=== PATIENT | female | born 1965 | race Caucasian/White ===

== ENCOUNTER 2018-01-23 15:12 | Emergency (ER) | payer OTHER, SELFPAY ==
[2018-01-23] MEDS ORDERED: NA CHLORIDE 0.9% 1,000 ML ONE ×2 (15:43→16:42)
[2018-01-23] MEDS ORDERED: ONDANSETRON 4 MG/2 ML VIAL ONE (15:43)
[2018-01-23 16:18] LABS: Absolute Lymphocytes (CBC) 0.4 K/uL (0.7-4.9); Absolute Monocytes 0.7 K/uL (0.1-1.3); Absolute Neutrophil 9.3 K/uL (1.8-8.0); Basophils % 0.5 % (0-1.3); Eosinophils % 0.1 % (0-4.4); Hematocrit 49.7 % (36.0-45.0); Lymphocytes % 4.1 % (15.3-44.8); MCH 31.8 pg (27.0-35.0); MCV 92.8 fL (80-100); MPV 8.3 fL (7.6-11.3); RBC Red Blood Cell Count 5.35 M/uL (3.86-4.86)
[2018-01-23] MEDS ORDERED: PROMETHAZINE 25 MG/ML VIAL ONE ×2 (16:22→18:11)
[2018-01-23 16:25] LABS: Albumin 5.6 g/dL (3.4-5.0); Bilirubin Direct 0.1 mg/dL (0-0.2); Bilirubin Total 0.4 mg/dL (0.2-1.0); Potassium 4.2 mmol/L (3.5-5.1); Protein, Total 10.2 g/dL (6.4-8.2)
--- NOTE | 2018-01-23 16:36 | EKG ---
Test Date: 2018-01-23 Test Time: 15:52:29 Hr Leader: SHIRLENE-Charissa MEASUREMENT RESULTS: Intervals: Rate: 106 [place]: 142 QRSD: 84 QT: 334 QTc: 443 [place]: P: 36 [place]: 142 QRS: 37 T: 61 INTERPRETIVE STATEMENTS: Sinus tachycardia Possible Left atrial enlargement Borderline ECG Compared to ECG 02/25/2014 07:30:20 Sinus rhythm no longer present Electronically Signed On 01-23-18 16:35:49 CDT by Giorgio Blanton
--- NOTE | 2018-01-23 17:01 | RAD REPORT ---
EXAM DESCRIPTION: CT - Abdomen Pelvis Wo Contrast - 01/23/2018 4:45 pm CLINICAL HISTORY: Abdominal pain, nausea and vomiting, diarrhea COMPARISON: CT abdomen and pelvis February 2014 TECHNIQUE: Axial [address] imaging of the abdomen and pelvis was performed without IV contrast. No IV contrast was given because of allergy, abnormal renal function, patient refusal or physician re quest. Oral contrast was given. All CT scans are performed using dose optimization technique as appropriate and may include automated exposure control or mA/KV adjustment according to patient size. FINDINGS: No suspicious findings in the lung bases. The liver, spleen and pancreas show no suspicious findings on non-contrast imaging. Gallbladder and b iliary tree are also without suspicious finding. No hydronephrosis or suspicious renal mass. Left kidney is slightly smaller and more lobulated contou r. This appearance is similar to prior imaging. Patient has nonobstructing calyx or parenchymal calcu li. No significant adrenal finding. Isodense renal masses and pyelonephritis cannot be excluded in th e absence of IV contrast. The urinary bladder is without significant finding. Uterus and ovaries show no suspicious findings. Tubal ligation clips are present. No dilated bowel loops or bowel wall thickening. No free air, free fluid or inflammatory stranding. N o mass or bulky lymphadenopathy. There are numerous small mesenteric and periaortic lymph nodes. No b ulky lymphadenopathy. A small fat only periumbilical hernia is seen. Disc and bone degenerative changes are present. No pathologic bone process. IMPRESSION: No obstruction, free air or surgically emergent finding. No acute GI process seen. The patient does have nonspecific mesenteric and periaortic lymph nodes. No hydronephrosis or obstructing calculus. Patient does have small bilateral nonobstructing calyx and / or parenchymal calculi. Isodense masses and pyelonephritis are not excluded. Full assessment is limited is the absence of IV contrast.
[2018-01-23] MEDS ORDERED: DIPHENOX/ATROP SULF 1 TAB PO ONE (17:14)
[2018-01-23] MEDS ORDERED: NA CHLORIDE 0.9% 500 ML ONE (18:12)
--- NOTE | 2018-01-23 18:12 | ER ---
Nurse's Notes [facility] Name: Dorina Rice Age: 52 yrs Sex: Female : 1965 Arrival Date: 01/23/2018 Time: 15:13 Bed 5 Private MD: None, None Diagnosis: Vomiting;Diarrhea, unspecified;Dehydration;Viral Gastroenteritis Presentation: 01/23 15:22 Presenting complaint: Patient states: N/V/D since 0200 this am. Transition of care: aj patient was not received from another setting of care. Onset of symptoms was January 23, 2018. Risk Assessment: Do you want to hurt yourself or someone else? Patient reports no desire to harm self or others. Initial Sepsis Screen: Does the patient meet any 2 criteria? No. Patient's initial sepsis screen is negative. Does the patient have a suspected source of infection? No. Patient's initial sepsis screen is negative. Care prior to arrival: None. 15:22 Method Of Arrival: Wheelchair 15:22 Acuity: DOMINIC 3 aj Triage Assessment: 15:24 General: Appears in no apparent distress. comfortable, Behavior is calm, cooperative, aj appropriate for age. Pain: Denies pain. Neuro: Level of Consciousness is awake, alert, obeys commands, Oriented to person, place, time, situation, Appropriate for age. Respiratory: Airway is patent Respiratory effort is even, unlabored, Respiratory pattern is regular, symmetrical. GI: Reports diarrhea, nausea, vomiting. Derm: Skin is intact, is healthy with good turgor, Skin is pink, warm \T\ dry. normal. 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 - Social history:: Smoking status: Patient/guardian denies using tobacco. - Ebola Screening: : Patient negative for fever greater than or equal to 101.5 degrees Fahrenheit, and additional compatible Ebola Virus Disease symptoms Patient denies exposure to infectious person Patient denies travel to an Ebola-affected area in the 21 days before illness onset No symptoms or risks identified at this time. - Family history:: not pertinent. - Hospitalizations: : No recent hospitalization is reported. Screenin:35 Abuse screen: Denies threats or abuse. Nutritional screening: No deficits noted. jb4 Tuberculosis screening: No symptoms or risk factors identified. Fall Risk IV access (20 points). Total Perez Fall Scale indicates No Risk (0-24 pts). Assessment: 15:35 General: Appears in no apparent distress. uncomfortable, Behavior is calm, cooperative, jb4 appropriate for age. Pain: Complains of pain in right low back, right hip and left hip Pain does not radiate. Pain currently is 7 out of 10 on a pain scale. at worst was 10 out of 10 on a pain scale. Quality of pain is described as crampy. Neuro: Level of Consciousness is awake, alert, obeys commands, Oriented to person, place, time, situation. Cardiovascular: Denies chest pain, shortness of breath, Heart tones S1 S2 present Patient's skin is warm and dry. Respiratory: Airway is patent Respiratory effort is even, unlabored, Respiratory pattern is symmetrical, tachypnea Breath sounds are clear bilaterally. GI: Abdomen is flat, Bowel sounds present X 4 quads. Abdomen is tender to palpation in epigastric area Reports cramping, diarrhea, nausea, vomiting, Patient currently denies bloody stool. : No signs and/or symptoms were reported regarding the genitourinary system. EENT: No signs and/or symptoms were reported regarding the EENT system. Derm: Skin is intact, Skin is pink, warm \T\ dry. Musculoskeletal: No signs and/or symptoms reported regarding the musculoskeletal system. 16:20 Reassessment: Patient and/or family updated on plan of care and expected duration. Pain jb4 level reassessed. Patient is alert, oriented x 3, equal unlabored respirations, skin warm/dry/pink. Pt reports that the Zofran did not help much, still complaining of nausea. Physician notified. See MAR for orders. 16:43 Reassessment: Pt wheeled to CT. reports decrease in nausea. jb4 17:00 Reassessment: Patient and/or family updated on plan of care and expected duration. Pain jb4 level reassessed. Patient is alert, oriented x 3, equal unlabored respirations, skin warm/dry/pink. Pt is back from CT. Resting in bed with family at the bedside. 18:18 Reassessment: Patient appears in no apparent distress at this time. Patient and/or jb4 family updated on plan of care and expected duration. Pain level reassessed. Patient is alert, oriented x 3, equal unlabored respirations, skin warm/dry/pink. 18:32 Reassessment: Pt reports decrease in nausea after Phenergan administration. jb4 Vital Signs: 15:24 Pulse 134; Resp 23; Temp 97.5; Pulse Ox 97% on R/A; Weight 81.65 kg; Height 5 ft. 2 in. aj (157.48 cm); 16:07 BP 103 / 69; Pulse 103; Resp 30; Pulse Ox 98% on R/A; Pain 10/10; jb4 17:04 BP 111 / 67; Pulse 108; Resp 27; Pulse Ox 96% on R/A; Pain 5/10; jb4 18:09 Pulse 111; Resp 18; Pulse Ox 95% on R/A; mg2 18:09 BP 136 / 75; jb4 15:24 Body Mass Index 32.92 (81.65 kg, 157.48 cm) aj 15:24 Patient moving during blood pressure measurement. Attempted twice when patient insisted aj on using restroom. Nurse informed of inability to measure BP in triage ED Course: 15:13 Patient arrived in ED. mr 15:13 None, None is Private Physician. mr 15:23 Triage completed. aj 15:24 Arm band placed on left wrist. Patient placed in an exam room. aj 15:29 Wyatt Carbajal MD is Attending Physician. rn 15:35 Patient has correct armband on for positive identification. Bed in low position. Call 4 light in reach. Side rails up X 1. emergency spill response technician on. Pulse ox on. NIBP on. 15:37 Radiology exam delayed due to lab results not completed at this time. (BUN/Creatinine). vr 15:40 Inserted saline lock: 20 gauge in right antecubital area, using aseptic technique. jb4 Blood collected. 15:40 Initial lab(s) drawn, by fl, sent to lab. jb4 15:52 Klaus Navarro, RN is Primary Nurse. 4 15:56 EKG done, by senior controls technician. reviewed by Wyatt Carbajal MD. 3 15:58 Radiology exam delayed due to lab results not completed at this time. (BUN/Creatinine). vr 16:46 Abdomen In Process Unspecified. EDMS 18:52 No provider procedures requiring assistance completed. IV discontinued, intact, jb4 bleeding controlled. Administered Medications: 15:42 Drug: Zofran 4 mg Route: IVP; Site: right antecubital; mg2 16:08 Follow up: Response: No adverse reaction jb4 15:43 Drug: NS 0.9% 1000 ml Route: IV; Rate: 1000 ml; Site: right antecubital; mg2 16:40 Follow up: Response: No adverse reaction; IV Status: Completed infusion jb4 16:25 Drug: Phenergan 12.5 mg Route: IVP; Site: right antecubital; jb4 16:41 Follow up: Response: No adverse reaction jb4 16:59 Drug: NS 0.9% 1000 ml Route: IV; Rate: 1000 ml; Site: right antecubital; jb4 17:50 Follow up: Response: No adverse reaction; IV Status: Completed infusion jb4 17:15 Drug: LoMOTIL 2 tabs Route: PO; la1 17:50 Follow up: Response: No adverse reaction jb4 18:06 Not Given (Duplicate Order): Phenergan 12.5 mg IVP once la1 18:06 CANCELLED (Duplicate Order): NS 0.9% 500 ml IV at bolus once la1 18:18 Drug: NS 0.9% 500 ml Route: IV; Rate: bolus; Site: right antecubital; jb4 18:45 Follow up: Response: No adverse reaction; IV Status: Completed infusion jb4 18:18 Drug: Phenergan 12.5 mg Route: IVP; Site: right antecubital; jb4 18:32 Follow up: Response: No adverse reaction jb4 Outcome: 18:11 Discharge ordered by . rn 18:52 Discharged to home ambulatory. jb4 18:52 Condition: stable 18:52 Discharge instructions given to patient, family, Instructed on discharge instructions, follow up and referral plans. medication usage, Demonstrated understanding of instructions, follow-up care, medications, Prescriptions given X 1. 18:53 Patient left the ED. jb4 Signatures: Dispatcher [employer] EDMS Summer Sanchez RN RN aj Rivera, Maria mr Nieto, Roman, MD MD rn Davis, Victoria vr Attema, Lee, RN RN la1 Klaus Navarro RN RN jb4 Edward Paige RN RN mg2 Sherry Wallace3 Corrections: (The following items were deleted from the chart) 15:27 15:24 Pulse 134bpm; Resp 23bpm; Pulse Ox 97% RA; Temp 97.5F; 81.65 kg; Height 5 ft. 2 aj in.; BMI: 32.9; aj 18:52 18:30 Response: No adverse reaction; IV Status: Completed infusion rafa jbSalbador
--- NOTE | 2018-01-23 18:12 | EDPHYS ---
Physician Documentation [facility] Name: Dorina Rice Age: 52 yrs Sex: Female : 1965 Arrival Date: 01/23/2018 Time: 15:13 Bed 5 Private MD: None, None ED Physician Wyatt Carbajal HPI: 01/23 16:10 This 52 yrs old Female presents to ER via Wheelchair with complaints of rn Vomiting/Diarrhea. 16:10 The patient presents to the emergency department with nausea, vomiting, diarrhea. rn Onset: The symptoms/episode began/occurred this morning. Possible causes: unknown. Severity of symptoms: At their worst the symptoms were moderate in the emergency department the symptoms are unchanged. 16:12 The patient has not experienced similar symptoms in the past. Reports rn nausea/vomiting/diarrhea since this AM, multiple kids in household with similar symptoms over last 2 weeks, + mild abd cramping, unable to tolerate PO.. 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 - Social history:: Smoking status: Patient/guardian denies using tobacco. - Ebola Screening: : Patient negative for fever greater than or equal to 101.5 degrees Fahrenheit, and additional compatible Ebola Virus Disease symptoms Patient denies exposure to infectious person Patient denies travel to an Ebola-affected area in the 21 days before illness onset No symptoms or risks identified at this time. - Family history:: not pertinent. - Hospitalizations: : No recent hospitalization is reported. ROS: 16:12 Constitutional: Negative for fever, chills, and weight loss, Eyes: Negative for injury, rn pain, redness, and discharge, Neck: Negative for injury, pain, and swelling, Cardiovascular: Negative for chest pain, palpitations, and edema, Respiratory: Negative for shortness of breath, cough, wheezing, and pleuritic chest pain, Abdomen/GI: Negative for constipation MS/Extremity: Negative for injury and deformity, Skin: Negative for injury, rash, and discoloration, Neuro: Negative for headache, numbness, tingling, and seizure. Exam: 16:12 Constitutional: This is a well developed, well nourished patient who is awake, alert, rn appears uncomfortable Head/Face: Normocephalic, atraumatic. Eyes: Pupils equal round and reactive to light, extra-ocular motions intact. Lids and lashes normal. Conjunctiva and sclera are non-icteric and not injected. Cornea within normal limits. Periorbital areas with no swelling, redness, or edema. ENT: dry MM Neck: Trachea midline, no thyromegaly or masses palpated, and no cervical lymphadenopathy. Supple, full range of motion without nuchal rigidity, or vertebral point tenderness. No Meningismus. Cardiovascular: tachycardic, regular, no murmur Respiratory: tachypnea, no retractions, no wheezing Abdomen/GI: Soft, non-tender. No distension or tympany. No guarding or rebound. No evidence of tenderness throughout. MS/ Extremity: Pulses equal, no cyanosis. Neurovascular intact. Full, normal range of motion. Equal circumference. Neuro: Awake and alert, GCS 15, oriented to person, place, time, and situation. Cranial nerves II-XII grossly intact. Motor strength 5/5 in all extremities. Sensory grossly intact. Vital Signs: 15:24 Pulse 134; Resp 23; Temp 97.5; Pulse Ox 97% on R/A; Weight 81.65 kg; Height 5 ft. 2 in. aj (157.48 cm); 16:07 BP 103 / 69; Pulse 103; Resp 30; Pulse Ox 98% on R/A; Pain 10/10; jb4 17:04 BP 111 / 67; Pulse 108; Resp 27; Pulse Ox 96% on R/A; Pain 5/10; jb4 18:09 Pulse 111; Resp 18; Pulse Ox 95% on R/A; mg2 18:09 BP 136 / 75; jb4 15:24 Body Mass Index 32.92 (81.65 kg, 157.48 cm) aj 15:24 Patient moving during blood pressure measurement. Attempted twice when patient insisted aj on using restroom. Nurse informed of inability to measure BP in triage MDM: 15:29 Patient medically screened. rn 18:06 Differential diagnosis: Nonspecific abd pain, gastritis, pancreatitis, appendicitis, rn diverticulitis, viral gastroenteritis, gastroenteritis. Data reviewed: vital signs, nurses notes, lab test result(s), radiologic studies, CT scan, and as a result, I will discharge patient. Counseling: I had a detailed discussion with the patient and/or guardian regarding: the historical points, exam findings, and any diagnostic results supporting the discharge/admit diagnosis, lab results, radiology results, the need for outpatient follow up, to return to the emergency department if symptoms worsen or persist or if there are any questions or concerns that arise at home. Response to treatment: the patient's symptoms have markedly improved after treatment, tolerated PO challenge, and as a result, I will discharge patient. Special discussion: I discussed with the patient/guardian in detail that at this point there is no indication for admission to the hospital. It is understood, however, that if the symptoms persist or worsen the patient needs to return immediately for re-evaluation. ED course: Pt improved, still mild tachycardia, offered observation overnight for IV fluids and nausea medication, patient states feels much better, tolerated PO, would like to go home and sleep it off, no more diarrhea, no acute findings on CT abdomen, will dc home with zofran prn and return precautions. Pt states without insurance and would only like to be admitted if absolutely has to, told her admission would be for fluids and anti-emetics, she chooses to go home. . 01/23 15:35 Order name: Basic Metabolic Panel; Complete Time: 16:33 rn 01/23 15:35 Order name: CBC with Diff; Complete Time: 16:33 rn 01/23 15:35 Order name: Hepatic Function; Complete Time: 16:33 rn 01/23 15:35 Order name: Lipase; Complete Time: 16:33 rn 01/23 16:37 Order name: Abdomen ; Complete Time: 17:02 EDMS 01/23 15:35 Order name: IV Saline Lock; Complete Time: 15:43 rn 01/23 15:35 Order name: Labs collected and sent; Complete Time: 15:43 rn 01/23 15:35 Order name: EKG; Complete Time: 15:36 rn 01/23 15:35 Order name: EKG - Nurse/Tech; Complete Time: 16:12 rn Administered Medications: 15:42 Drug: Zofran 4 mg Route: IVP; Site: right antecubital; mg2 16:08 Follow up: Response: No adverse reaction jb4 15:43 Drug: NS 0.9% 1000 ml Route: IV; Rate: 1000 ml; Site: right antecubital; mg2 16:40 Follow up: Response: No adverse reaction; IV Status: Completed infusion jb4 16:25 Drug: Phenergan 12.5 mg Route: IVP; Site: right antecubital; jb4 16:41 Follow up: Response: No adverse reaction jb4 16:59 Drug: NS 0.9% 1000 ml Route: IV; Rate: 1000 ml; Site: right antecubital; jb4 17:50 Follow up: Response: No adverse reaction; IV Status: Completed infusion jb4 17:15 Drug: LoMOTIL 2 tabs Route: PO; la1 17:50 Follow up: Response: No adverse reaction jb4 18:06 Not Given (Duplicate Order): Phenergan 12.5 mg IVP once la1 18:06 CANCELLED (Duplicate Order): NS 0.9% 500 ml IV at bolus once la1 18:18 Drug: NS 0.9% 500 ml Route: IV; Rate: bolus; Site: right antecubital; jb4 18:45 Follow up: Response: No adverse reaction; IV Status: Completed infusion jb4 18:18 Drug: Phenergan 12.5 mg Route: IVP; Site: right antecubital; jb4 18:32 Follow up: Response: No adverse reaction jb4 Disposition: 01/23/18 18:11 Discharged to Home. Impression: Vomiting, Diarrhea, unspecified, Dehydration, Viral Gastroenteritis. - Condition is Stable. - Discharge Instructions: Dehydration, Adult, Diarrhea, Adult, Nausea and Vomiting, Adult, Viral Gastroenteritis, Adult. - Prescriptions for Zofran ODT 4 mg Oral tablet,disintegrating - place 1 tablet by TRANSLINGUAL route every 8-10 hours As needed; 20 tablet. - Medication Reconciliation Form, Thank You Letter, Antibiotic Education, Prescription Opioid Use form. - Follow up: Private Physician; When: As needed; Reason: Recheck today's complaints, Re-evaluation by your physician. - Problem is new. - Symptoms have improved. Signatures: Dispatcher [employer] Summer Chen RN RN aj Nieto, Roman, MD MD rn Attema, Lee, RN RN la1 Klaus Navarro RN RN jb4 Edward Paige, RN RN mg2 Corrections: (The following items were deleted from the chart) 16:37 15:36 Abdomen Pelvis W Con+CT.[id number].BRZ ordered. EDMS EDMS 18:06 18:06 NS 0.9% 500 ml IV at bolus once ordered. laChaim laChaim 18:53 18:11 01/23/2018 18:11 Discharged to Home. Impression: Vomiting; Diarrhea, unspecified; jb4 Dehydration; Viral Gastroenteritis. Condition is Stable. Forms are Medication Reconciliation Form, Thank You Letter, Antibiotic Education, Prescription Opioid Use. Follow up: Private Physician; When: As needed; Reason: Recheck today's complaints, Re-evaluation by your physician. Problem is new. Symptoms have improved. rn
[2018-01-23 18:58] VITALS: TEMP 97.5
[2018-01-23 19:02] VITALS: BP 136/75; O2SAT 95
== END 2018-01-23 18:53 | disposition home or self-care (01) ==
LOC: ER 15:12
DX: A08.4 Viral intestinal infection, unspecified (principal); E86.0 Dehydration; R11.2 Nausea with vomiting, unspecified; R19.7 Diarrhea, unspecified; Z88.3 Allergy status to other anti-infective agents; Z88.0 Allergy status to penicillin; I10 Essential (primary) hypertension
CPT/HCPCS: 36415; 74176; 80048; 80076; 83690; 85025; 93005; 96361; 96374; 96375; 99285; J2405; J2550; J7030

== ENCOUNTER 2021-04-29 07:32 | Emergency (ER) | payer SELFPAY ==
[2021-04-29] MEDS ORDERED: ONDANSETRON 4 MG/2 ML VIAL ONE (07:50)
[2021-04-29] MEDS ORDERED: NA CHLORIDE 0.9% 1,000 ML ONE (07:50)
[2021-04-29] MEDS ORDERED: MORPHINE 4 MG/ML SYR ONE (07:50)
[2021-04-29 08:01] LABS: Urine Blood Trace-intact (Negative); Urine Glucose Negative (Negative); Urine Protein 1+ (Negative); Urine pH 7.5 (5.0-7.0)
[2021-04-29 08:26] LABS: Absolute Lymphocytes (CBC) 1.8 K/uL (0.7-4.9); Basophils % 0.7 % (0-1.3); Hematocrit 42.6 % (36.0-45.0); Lymphocytes % 15.1 % (15.3-44.8); MPV 7.4 fL (7.6-11.3); RBC Red Blood Cell Count 4.76 M/uL (3.86-4.86)
--- NOTE | 2021-04-29 08:42 | RAD REPORT ---
EXAM DESCRIPTION: CT - Abdomen Pelvis W Contrast - 04/29/2021 8:23 am CLINICAL HISTORY: ABD PAIN COMPARISON: CT ABD PELVIS W CONTRAST dated 02/24/2014 TECHNIQUE: Biphasic, helical CT imaging of the abdomen and pelvis was performed following 100 ml non -ionic IV contrast. No oral contrast was administered. All CT scans are performed using dose optimization technique as appropriate and may include automated exposure control or mA/KV adjustment according to patient size. FINDINGS: No suspicious findings in the lung bases. No cardiomegaly or pericardial effusion. Bilater al breast implants in place. The liver, spleen, and pancreas show no suspicious findings. Gallbladder and biliary tree are also wi thout suspicious finding. Symmetric renal function is seen with no hydronephrosis or suspicious renal mass. No pyelonephritis o r acute parenchymal process. Nonobstructing 3-6 mm sized calyx calculi are present. Lobulated left re nal contour again noted. 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 No adrenal abnormal ities. Contracted urinary bladder shows no gross abnormality. Uterus and ovaries without suspicious f indings. Left fundal fibroid matches the 2014 study. No stomach or small bowel abnormality. No appendicitis findings. Mild circumferential wall thickening present with wall edema and stranding in the adjacent fat involving the descending and sigmoid porti ons of the colon. In the descending colon there are several exophytic opacified diverticula also show ing similar infectious/ inflammatory wall changes. No abnormal extraluminal free air, abscess or surg ically emergent finding. No pneumatosis. Rectum and right-side colon spared any acute disease. No mass or bulky lymphadenopathy. A small 15 millimeter fat only umbilical hernia present. No acute disc or bone finding. Patient has advanced for age degenerative change involving the L4-5 an d L5-S1 facet joints. There is slight anterior subluxation of L5 with degenerative gas in the L5-S1 d isc space. IMPRESSION: Sigmoid and descending portions of the colon show wall thickening and edema consistent w ith nonspecific colitis. Patient does have a few diverticula that are involved by the infectious/inflammatory process. These a re few in number and the findings favor colitis over diverticulitis.
[2021-04-29 08:43] LABS: ALT/SGPT 32 U/L (12-78); AST/SGOT 17 U/L (15-37); Albumin 4.2 g/dL (3.4-5.0); Alkaline Phosphatase 116 U/L (45-117); BUN Blood Urea Nitrogen 13 mg/dL (7-18); Bicarbonate 28 mmol/L (21-32); Bilirubin Direct 0.1 mg/dL (0-0.2); Bilirubin Total 0.4 mg/dL (0.2-1.0); Glucose Level 110 mg/dL (74-106); Lipase 81 U/L (73-393); Potassium 4.1 mmol/L (3.5-5.1); Protein, Total 8.3 g/dL (6.4-8.2); Sodium Level 139 mmol/L (136-145)
--- NOTE | 2021-04-29 09:01 | ER ---
Nurse's Notes [facility] Name: Dorina Rice Age: 55 yrs Sex: Female : 1965 Arrival Date: 04/29/2021 Time: 07:33 Bed 14 Private MD: Holli Rapp Diagnosis: Colitis Presentation: 04/29 07:43 Chief complaint: Patient states: Pt. endorses abdominal pain that started last night jt3 that radiates from front to back. Pt. states she had nausea and vomiting and bright red bloody diarrhea. Alert and oriented x4 on arrival. Denies dizziness at this time. Past medical hx of HTN. Coronavirus screen: Vaccine status: Patient reports receiving the 2nd dose of the covid vaccine. Ebola Screen: Patient negative for fever greater than or equal to 101.5 degrees Fahrenheit, and additional compatible Ebola Virus Disease symptoms Patient denies exposure to infectious person. Patient denies travel to an Ebola-affected area in the 21 days before illness onset. Initial Sepsis Screen: Does the patient meet any 2 criteria? No. Patient's initial sepsis screen is negative. Does the patient have a suspected source of infection? No. Patient's initial sepsis screen is negative. Risk Assessment: Do you want to hurt yourself or someone else? Patient reports no desire to harm self or others. Onset of symptoms was April 28, 2021. 07:43 Method Of Arrival: Ambulatory jt3 07:43 Acuity: DOMINIC 3 jt3 Triage Assessment: 07:45 General: Appears uncomfortable, Behavior is calm, cooperative. Pain: Complains of pain jt3 in abdomen Pain radiates to back Pain began 1 day ago. GI: Reports lower abdominal pain, diarrhea, bloody stool, nausea, vomiting. Historical: - Allergies: 07:45 Bactrim; jt3 07:45 PENICILLINS; jt3 07:45 Sulfa (Sulfonamide Antibiotics); jt3 - PMHx: 07:45 Hypertension; jt3 - Immunization history:: Adult Immunizations up to date. - Social history:: Smoking status: unknown. Screenin:45 Abuse screen: Denies threats or abuse. Nutritional screening: No deficits noted. sl2 Tuberculosis screening: No symptoms or risk factors identified. Tuberculosis screening: Never had TB. Possible symptoms: None Risk factors: None. Fall Risk None identified. No fall in past 12 months (0 pts). No secondary diagnosis (0 pts). No IV (0 pts). Ambulatory Aid- None/Bed Rest/Nurse Assist (0 pts). Gait- Normal/Bed Rest/Wheelchair (0 pts). Assessment: 07:45 Reassessment: Patient encouraged to provide urine specimen - ambulated to restroom with sl2 steady gait noted. Pain: Complains of pain in abdomen Pain does not radiate. Pain currently is 7 out of 10 on a pain scale. at worst was 10 out of 10 on a pain scale. level that patient reports is acceptable is 2 out of 10 on a pain scale. Quality of pain is described as aching, crampy, squeezing, Pain began suddenly, 10 -12 hours ago - last pm Is intermittent, Alleviated by nothing. Aggravated by none Noted to be grimacing. Neuro: No deficits noted. Level of Consciousness is awake, alert, obeys commands, Oriented to person, place, time, situation, Appropriate for age Rn Mds Coordinator are equal bilaterally Moves all extremities. Full function Gait is steady, Speech is normal, Facial symmetry appears normal. Cardiovascular: No deficits noted. Capillary refill Rhythm is regular. GI: Abdomen is round obese, Bowel sounds present X 4 quads. Abd is soft and non tender X 4 quads. Reports lower abdominal pain, upper abdominal pain, rectal bleeding, Patient currently denies nausea, vomiting. : No deficits noted. No signs and/or symptoms were reported regarding the genitourinary system. EENT: No deficits noted. No signs and/or symptoms were reported regarding the EENT system. Derm: No deficits noted. No signs and/or symptoms reported regarding the dermatologic system. Musculoskeletal: No deficits noted. No signs and/or symptoms reported regarding the musculoskeletal system. 08:31 Reassessment: CAT scan completed - awaiting results. patient verbalized decreased pain sl2 now 1 of 10, denies nausea. Will continue to re-assess and monitor. 08:59 Reassessment: Ozzie [employer] present at bedside for patient re-assessment, update on sl2 diagnostic findings and disposition. 09:34 Reassessment: Patient currently being prepared for discharge, however c/o severe sl2 itching to bilateral ears, neck and chest, also c/o itching to throat with hoarseness noted, patient frequently make noises to clear her throat - allergic response noted - Cipro 500 mg PO and Flagyl 500 PO was administered at 09:04 this am. EDP notified and orders received - patient mediated with Benadryl 50 mg IVP, Solu-Medrol 125 mg IVP and Pepcid 20 mg PO, 1:1 monitoring in progress. Will notify EDP of patient status. 10:01 Reassessment: Patient denies itching to bilateral ears, neck and chest at this time, sl2 states still feel scratchy sensation to throat, however itching to throat has subsided. Vital signs stable, improved patient status noted. 10:13 Reassessment: Patient states she feels much better - denies itching and states scratchy sl2 sensation to her throat has improved as well. Will continue to monitor. 10:51 Reassessment: Pt. is feeling better, but drowsy from the medication. Pt. feels she is jt3 comfortable to go home at this time. Denies itching. Alert and oriented x4. IV d/c'd upon discharge. Airway patent and respirations equal and unlabored. Vital Signs: 07:43 BP 157 / 103; Pulse 97; Resp 20; Temp 98.3; Pulse Ox 97% on R/A; Weight 77.11 kg; jt3 Height 5 ft. 1 in. (154.94 cm); 07:45 BP 152 / 98; Pulse 95; Resp 18; Temp 98.3(O); Pulse Ox 98% on R/A; sl2 08:08 BP 119 / 81; Pulse 79; Resp 18; Pulse Ox 100% on R/A; sl2 08:35 BP 150 / 76; Pulse 83; Resp 18; Pulse Ox 97% on R/A; sl2 09:00 BP 154 / 85; Pulse 83; Resp 18; Temp 98.2(O); Pulse Ox 99% on R/A; sl2 09:30 BP 148 / 82; Pulse 90; Resp 16; Pulse Ox 97% on R/A; sl2 10:00 BP 134 / 74; Pulse 77; Resp 18; Temp 98.2; Pulse Ox 98% on R/A; sl2 10:47 BP 129 / 70; Pulse 77; Resp 17; Pulse Ox 97% on R/A; jt3 07:43 Body Mass Index 32.12 (77.11 kg, 154.94 cm) jt3 ED Course: 07:33 Patient arrived in ED. am2 07:33 Holli Rapp MD is Private Physician. am2 07:36 Reba Horne FNP-C is [facility]. kb 07:37 William Martinez MD is Attending Physician. kb 07:45 Triage completed. jt3 07:45 Kirsten Roman, RN is Primary Nurse. sl2 07:45 Arm band placed on right wrist. jt3 07:45 Patient has correct armband on for positive identification. Placed in gown. Bed in low sl2 position. Call light in reach. Adult w/ patient. 08:[address] via stretcher. sl2 08:15 Initial lab(s) drawn, by me, sent to lab. sl2 08:23 CT Abd/Pelvis - IV Contrast Only In Process Unspecified. EDMS 08:25 No provider procedures requiring assistance completed. sl2 08:31 Patient moved back from CT. sl2 09:16 IV discontinued, intact, bleeding controlled, No redness/swelling at site. Pressure sl2 dressing applied. 09:29 Inserted saline lock: 20 gauge in right antecubital area, using aseptic technique. sl2 10:48 IV discontinued, intact, bleeding controlled, No redness/swelling at site. Pressure jt3 dressing applied, Right arm IV D/C'd. Administered Medications: 08:04 Drug: Zofran (Ondansetron) 4 mg Route: IVP; Site: left forearm; sl2 08:36 Follow up: Response: No adverse reaction; Marked relief of symptoms; Nausea is decreasedsl2 08:04 Drug: NS 0.9% 1000 ml Route: IV; Rate: 1000 ml; Site: left forearm; sl2 08:36 Follow up: Response: No adverse reaction sl2 09:10 Follow up: IV Status: Completed infusion; IV Intake: 1000ml sl2 08:06 Drug: morphine 4 mg Route: IVP; Site: left forearm; sl2 08:36 Follow up: Response: No adverse reaction; Marked relief of symptoms; Pain is decreased sl2 09:04 Drug: Cipro (ciprofloxacin) 500 mg Route: PO; sl2 09:13 Follow up: Response: No adverse reaction sl2 09:20 Follow up: Response: Adverse reaction, Physician notified sl2 09:04 Drug: Flagyl (metroNIDAZOLE) 500 mg Route: PO; sl2 09:13 Follow up: Response: No adverse reaction sl2 09:28 Drug: Pepcid (famotidine) 40 mg Route: PO; sl2 09:30 Drug: Benadryl (diphenhydrAMINE) 50 mg {Note: medication administered to Right sl2 antecubetal space # 20 guage IV.} Route: IM; Site: Other; 09:32 Drug: SOLU-Medrol (methylPrednisoLONE) 125 mg Route: IVP; Site: right antecubital; sl2 09:54 Not Given ( Medication already given via IV route to right A/C # 20 guage ): Benadryl sl2 (diphenhydrAMINE) 25 mg IVP once Intake: 09:10 IV: 1000ml; Total: 1000ml. sl2 Outcome: 09:01 Discharge ordered by . jovany 09:15 Discharged to home ambulatory, with family. sl2 09:15 Condition: stable 09:15 Discharge instructions given to patient, family, Instructed on discharge instructions, follow up and referral plans. no drinking with medication, medication usage, Demonstrated understanding of instructions, follow-up care, medications, Prescriptions given X 4. 10:52 Patient left the ED. jt3 Signatures: Dispatcher [employer] EDMS Reba Horne, QUINCY FRANK-Summer Collins am2 Kirsten Roman RN RN sl2 Josias Collins RN RN jt3 Corrections: (The following items were deleted from the chart) 10:12 09:34 Reassessment: Patient currently being prepared for discharge, however c/o severe sl2 itching to bilateral ears, neck and chest - allergic response noted - cipro 500mg PO and flagyl 500PO was administered at 09:04 today. EDP notified and orders received - patient mediated with Benadryl 50mg IVP, Solumedrol 125mg IVP amd pepcid 20mg PO, 1:1 monitoring in progress. Will notify EDP of patient status sl2
--- NOTE | 2021-04-29 09:01 | EDPHYS ---
Physician Documentation [facility] Name: Dorina Rice Age: 55 yrs Sex: Female : 1965 Arrival Date: 04/29/2021 Time: 07:33 Bed 14 Private MD: Holli Rapp ED Physician William Martinez HPI: 04/29 07:51 This 55 yrs old Female presents to ER via Ambulatory with complaints of kb Vomiting/Diarrhea, Abdominal Cramping, Rectal Bleeding. 07:51 The patient has not experienced similar symptoms in the past. The patient has not kb recently seen a physician. 07:51 The patient presents to the emergency department with rectal bleeding, bright red blood kb with bowel movement, on toilet paper, in toilet bowl. Onset: The symptoms/episode began/occurred last night. Abdominal pain: described as intermittent, located in the abdomen diffusely, that radiates to the back. Modifying factors: The symptoms are alleviated by nothing, the symptoms are aggravated by nothing. Associated signs and symptoms: Pertinent positives: vomiting, Pertinent negatives: anorexia, chest pain, constipation, diarrhea, dizziness at rest, dizziness when standing, fever, shortness of breath, syncope, near-syncope. Severity of symptoms: At their worst the symptoms were moderate in the emergency department the symptoms are unchanged. Historical: - Allergies: 07:45 Bactrim; jt3 07:45 PENICILLINS; jt3 07:45 Sulfa (Sulfonamide Antibiotics); jt3 - PMHx: 07:45 Hypertension; jt3 - Immunization history:: Adult Immunizations up to date. - Social history:: Smoking status: unknown. ROS: 07:50 Constitutional: Negative for fever, chills, and weight loss. kb 07:50 Abdomen/GI: Positive for abdominal pain, nausea and vomiting, rectal bleeding. 07:50 All other systems are negative. Exam: 07:50 Constitutional: This is a well developed, well nourished patient who is awake, alert, kb and in no acute distress. Head/Face: Normocephalic, atraumatic. ENT: Moist Mucous membranes Cardiovascular: Regular rate and rhythm with a normal S1 and S2. No gallops, murmurs, or rubs. No pulse deficits. Respiratory: Respirations even and unlabored. No increased work of breathing, no retractions or nasal flaring. Skin: Warm, dry with normal turgor. Normal color. MS/ Extremity: Pulses equal, no cyanosis. Neurovascular intact. Full, normal range of motion. Neuro: Awake and alert, GCS 15, oriented to person, place, time, and situation. Moves all extremities. Normal gait. Psych: Awake, alert, with orientation to person, place and time. Behavior, mood, and affect are within normal limits. 07:50 Abdomen/GI: Inspection: abdomen appears normal, Bowel sounds: normal, Palpation: moderate abdominal tenderness, in all quadrants, Rectal exam: rectal tone normal, Stool: guaiac negative, the exam is chaperoned by a family member. Vital Signs: 07:43 BP 157 / 103; Pulse 97; Resp 20; Temp 98.3; Pulse Ox 97% on R/A; Weight 77.11 kg; jt3 Height 5 ft. 1 in. (154.94 cm); 07:45 BP 152 / 98; Pulse 95; Resp 18; Temp 98.3(O); Pulse Ox 98% on R/A; sl2 08:08 BP 119 / 81; Pulse 79; Resp 18; Pulse Ox 100% on R/A; sl2 08:35 BP 150 / 76; Pulse 83; Resp 18; Pulse Ox 97% on R/A; sl2 09:00 BP 154 / 85; Pulse 83; Resp 18; Temp 98.2(O); Pulse Ox 99% on R/A; sl2 09:30 BP 148 / 82; Pulse 90; Resp 16; Pulse Ox 97% on R/A; sl2 10:00 BP 134 / 74; Pulse 77; Resp 18; Temp 98.2; Pulse Ox 98% on R/A; sl2 10:47 BP 129 / 70; Pulse 77; Resp 17; Pulse Ox 97% on R/A; jt3 07:43 Body Mass Index 32.12 (77.11 kg, 154.94 cm) jt3 MDM: 07:37 Patient medically screened. kb 07:50 Data reviewed: vital signs, nurses notes. Data interpreted: Pulse oximetry: on room air kb is 97 %. Interpretation: normal. 09:00 Counseling: I had a detailed discussion with the patient and/or guardian regarding: the kb historical points, exam findings, and any diagnostic results supporting the discharge/admit diagnosis, lab results, radiology results, the need for outpatient follow up, a family practitioner, a network intelligence analyst, to return to the emergency department if symptoms worsen or persist or if there are any questions or concerns that arise at home. ED course: Pt educated on possible need for colonoscopy if symptoms persist. Will prescribe antibiotics for colitis. Pt educated to return for worsening symptoms or any other concerns. . 04/29 07:45 Order name: Basic Metabolic Panel; Complete Time: 08:55 kb 04/29 07:45 Order name: CBC with Diff; Complete Time: 08:28 kb 04/29 07:45 Order name: Hepatic Function; Complete Time: 08:55 kb 04/29 07:45 Order name: Lipase; Complete Time: 08:55 kb 04/29 07:45 Order name: CT Abd/Pelvis - IV Contrast Only; Complete Time: 08:55 kb 04/29 08:01 Order name: Urine Dipstick-Ancillary; Complete Time: 08:04 EDMS 04/29 07:45 Order name: IV Saline Lock; Complete Time: 08:17 kb 04/29 07:45 Order name: Labs collected and sent; Complete Time: 08:17 kb Administered Medications: 08:04 Drug: Zofran (Ondansetron) 4 mg Route: IVP; Site: left forearm; sl2 08:36 Follow up: Response: No adverse reaction; Marked relief of symptoms; Nausea is decreasedsl2 08:04 Drug: NS 0.9% 1000 ml Route: IV; Rate: 1000 ml; Site: left forearm; sl2 08:36 Follow up: Response: No adverse reaction sl2 09:10 Follow up: IV Status: Completed infusion; IV Intake: 1000ml sl2 08:06 Drug: morphine 4 mg Route: IVP; Site: left forearm; sl2 08:36 Follow up: Response: No adverse reaction; Marked relief of symptoms; Pain is decreased sl2 09:04 Drug: Cipro (ciprofloxacin) 500 mg Route: PO; sl2 09:13 Follow up: Response: No adverse reaction sl2 09:20 Follow up: Response: Adverse reaction, Physician notified sl2 09:04 Drug: Flagyl (metroNIDAZOLE) 500 mg Route: PO; sl2 09:13 Follow up: Response: No adverse reaction sl2 09:28 Drug: Pepcid (famotidine) 40 mg Route: PO; sl2 09:30 Drug: Benadryl (diphenhydrAMINE) 50 mg {Note: medication administered to Right sl2 antecubetal space # 20 guage IV.} Route: IM; Site: Other; 09:32 Drug: SOLU-Medrol (methylPrednisoLONE) 125 mg Route: IVP; Site: right antecubital; sl2 09:54 Not Given ( Medication already given via IV route to right A/C # 20 guage ): Benadryl sl2 (diphenhydrAMINE) 25 mg IVP once Disposition: 04/30 03:42 Co-signature as Attending Physician, William Matrinez MD I agree with the assessment and marylou plan of care. Disposition Summary: 04/29/21 09:01 Discharge Ordered Location: Home kb Condition: Stable kb Diagnosis - Colitis kb Followup: kb - With: Emergency Department - When: As needed - Reason: Worsening of condition Followup: kb - With: Private Physician - When: 2 - 3 days - Reason: Recheck today's complaints, Continuance of care, Re-evaluation by your physician Discharge Instructions: - Discharge Summary Sheet kb - Colitis kb Forms: - Medication Reconciliation Form kb - Thank You Letter kb - Antibiotic Education kb - Prescription Opioid Use kb Prescriptions: - Flagyl 500 mg Oral Tablet - take 1 tablet by ORAL route every 8 hours for 10 days; 30 tablet; Refills: 0, kb Product Selection Permitted - Pepcid 20 mg Oral Tablet - take 1 tablet by ORAL route every 12 hours for 5 days; 10 tablet; Refills: 0, kb Product Selection Permitted - Prednisone 20 mg Oral Tablet - take 1 tablet by ORAL route once daily for 5 days; 5 tablet; Refills: 0, kb Product Selection Permitted - Zofran 4 mg Oral Tablet - take 1 tablet by ORAL route every 6 hours As needed; 20 tablet; Refills: 0, kb Product Selection Permitted - dicyclomine 20 mg Oral Tablet - take 1 tablet by ORAL route 4 times per day As needed; 1 tablet; Refills: 0, kb Product Selection Permitted Signatures: Dispatcher [employer] Reba Mao, ZAC-Radha FRANK-William Andino MD MD cha Landell, Sophia, RN RN sl2 Josias Collins RN RN jt3
[2021-04-29] MEDS ORDERED: METRONIDAZOLE 500mg IVPB 0 MG/0 ML BAG IV ONE (09:02)
[2021-04-29] MEDS ORDERED: metroNIDAZOLE 500 MG TABLET ONE (09:04)
[2021-04-29] MEDS ORDERED: CIPROFLOXACIN HCL 500 MG TAB ONE (09:05)
[2021-04-29] MEDS ORDERED: FAMOTIDINE 20 MG TAB ONE (09:28)
[2021-04-29] MEDS ORDERED: DIPHENHYDRAMINE 50 MG/ML VIAL ONE (09:28)
[2021-04-29] MEDS ORDERED: METHYLPREDNISOLONE 125 MG INJ ONE (09:31)
[2021-04-29 11:04] VITALS: TEMP 98.2
[2021-04-29 11:08] VITALS: BP 129/70; O2SAT 97
--- OUTSIDE RECORDS SUMMARY | 2021-04-29 23:30 | XMS REPORT | Continuity of Care Document ---
:[address] [facility] t Address [address] [place] [address] Care Team Providers Name Role Phone Unavailable Unavailable Unavailable Problems This patient has no known problems. Allergies, Adverse Reactions, Alerts Allergy Allergy Status Severity Reaction(s) Onset Inactive Treating Comm ents Source Name Type Date Date Clinician Bactrim Adverse Active Info Not [facility] Reaction Available [facility] Medications Ordered Filled Start Stop Current Ordering Indication Dosage Frequency Signature Comments Components Source Medication Medication Date Date Medication? Clinician (SIG) Name Name Effexor XR Effexor XR 2018-06 Yes Na Rapp [address] [facility] 1-19 with food [facility] ProAir HFA ProAir HFA Yes Na Rapp 2-[address] [facility] as needed [facility] Clonazepam Clonazepam Yes Na Rapp [address] [facility] Doxycycline Doxycycline Yes Na Rapp [address] [facility] Hyclate Hyclate [facility] Azithromyci Azithromyci Yes Na Rapp as [facility] n n directed [facility] Lisinopril Lisinopril Yes Na Rapp [address] [facility] Duexis Duexis Yes Na Rapp [address] [facility] Wellbutrin Wellbutrin Yes Na Rapp [address] [facility] Albuterol Albuterol Yes Na Rapp [address] [facility] Hydrochloro Hydrochloro Yes Na Rapp [address] [facility] thiazide thiazide in the [facility] Procedures This patient has no known procedures. Encounters Start End Encounter Admission Attending Care Care Encounter Source Date/Time Date/Time Type Type Clinicians Facility Department ID 2021-04-21 2021-04-21 ambulatory [facility] [id number] [facility] 2020-11-15 2020-11-15 Outpatient [facility] [id number] [facility] 2020-11-11 2020-11-11 Outpatient [facility] [id number] [facility] 2020-11-03 2020-11-03 Outpatient [facility] [id number] [facility] 2020-10-27 2020-10-27 Outpatient [facility] [id number] [facility] 2020-10-24 2020-10-24 Outpatient [facility] [id number] [facility] 2020-10-24 2020-10-24 Outpatient [facility] [id number] [facility] 2020-10-19 2020-10-19 Outpatient [facility] [id number] [facility] 2020-10-18 2020-10-18 Outpatient [facility] [id number] [facility] 2020-07-21 2020-07-21 Out[facility] [id number] [facility] 2020-04-01 2020-04-01 Outpatient [facility] [id number] [facility] 2019-12-11 2019-12-11 [facility] [id number] [facility] 16[facility]20[facility]00 16:20:00 [facility] 2019-06-19 2019-06-19 [facility] [id number] 11:22:00 11:22:00 t [facility] 2019-05-05 2019-05-05 [facility] [id number] 16:20:00 16:20:00 t [facility] 2018-04-07 2018-04-07 Outpatient [facility] [id number] [facility] Results This patient has no known results.
== END 2021-04-29 10:52 | disposition home or self-care (01) ==
LOC: ER 07:32
DX: K52.9 Noninfective gastroenteritis and colitis, unspecified (principal); I10 Essential (primary) hypertension; Z88.0 Allergy status to penicillin; Z88.1 Allergy status to other antibiotic agents; Z88.2 Allergy status to sulfonamides
CPT/HCPCS: 36415; 74177; 80048; 80076; 81003; 82565; 83690; 85025; 96372; 99284; J1200; J2405; J2930; J7030; Q9967

== ENCOUNTER 2024-01-30 07:48 | Emergency (ER) | payer SELFPAY ==
--- NOTE | 2024-01-30 08:42 | ER ---
Nurse's Notes [facility] Name: Dorina Rice Age: 58 yrs Sex: Female : 1965 Arrival Date: 01/30/2024 Time: 07:48 Bed 15 Private MD: Diagnosis: Ankle sprain right side Presentation: 01/29 07:59 Chief complaint: Patient states: rolled right ankle last night, missed a step, still iw having pain today and cannot bear weight. Coronavirus screen: At this time, the client does not indicate any symptoms associated with coronavirus-19. Ebola Screen: No symptoms or risks identified at this time. Initial Sepsis Screen: Does the patient meet any 2 criteria? No. Patient's initial sepsis screen is negative. Does the patient have a suspected source of infection? No. Patient's initial sepsis screen is negative. Risk Assessment: Do you want to hurt yourself or someone else? Patient reports no desire to harm self or others. Onset of symptoms was January 29, 2024. 07:59 Method Of Arrival: Wheelchair iw 07:59 Acuity: DOMINIC 4 iw Historical: - Allergies: 08:00 PENICILLINS; iw 08:00 Bactrim; iw 08:00 Sulfa (Sulfonamide Antibiotics); iw - PMHx: 08:00 Hypertension; iw - PSHx: 08:00 breast (Hypertension); iw - Immunization history:: Adult Immunizations not up to date. - Infectious Disease History:: Denies. - Social history:: Smoking status: Patient denies any tobacco usage or history of. Screenin:11 [facility] ED Fall Risk Assessment (Adult) History of falling in the last 3 months, kc6 including since admission Yes- single mechanical fall (1 pt) Confusion or Disorientation No (0 pts) Intoxicated or Sedated No (0 pts) Impaired Gait No (0 pts) Mobility Assist Device Used No (0 pt) Altered Elimination No (0 pt) Score/Fall Risk Level 0 - 2 = Low Risk. Abuse screen: Denies threats or abuse. Denies injuries from another. Nutritional screening: No deficits noted. Tuberculosis screening: No symptoms or risk factors identified. Assessment: 08:11 General: Appears in no apparent distress. comfortable, well groomed, well developed, kc6 Behavior is calm, cooperative, appropriate for age. Pain: Complains of pain in right foot. Neuro: Level of Consciousness is awake, alert, obeys commands, Oriented to person, place, time, situation, Appropriate for age. Cardiovascular: Capillary refill < 3 seconds. Respiratory: Airway is patent Trachea midline Respiratory effort is even, unlabored, Respiratory pattern is regular, symmetrical. GI: No signs and/or symptoms were reported involving the gastrointestinal system. : No signs and/or symptoms were reported regarding the genitourinary system. EENT: No signs and/or symptoms were reported regarding the EENT system. Derm: No signs and/or symptoms reported regarding the dermatologic system. Skin is intact, is healthy with good turgor, Skin is pink, warm \T\ dry. Musculoskeletal: Range of motion: limited in right ankle. Vital Signs: 07:59 BP 134 / 65; Pulse 77; Resp 16; Temp 97.6; Pulse Ox 99% on R/A; Weight 61.23 kg; Height iw 5 ft. 1 in. ; Pain 7/10; 07:59 Body Mass Index 25.51 (61.23 kg, 154.94 cm) iw 07:59 Pain Scale: Adult iw ED Course: 07:52 Patient arrived in ED. ra3 07:57 Jesu Mcgarry MD is Attending Physician. sp3 08:00 Triage completed. iw 08:01 Arm band placed on. iw 08:08 Joy Kothari, RN is Primary Nurse. kc6 08:11 Patient has correct armband on for positive identification. Bed in low position. Call kc6 light in reach. Side rails up X 1. Pulse ox on. NIBP on. Door closed. Noise minimized. Lights dimmed. Pillow given. 08:35 Ankle Right 3 View XRAY In Process Unspecified. EDMS 08:58 No provider procedures requiring assistance completed. Patient did not have IV access kc6 during this emergency room visit. 08:59 Provided Education on: crutch training. kc6 Administered Medications: No medications were administered Medication: 08:59 VIS not applicable for this client. kc6 Outcome: 08:41 Discharge ordered by . sp3 08:59 Discharged to home with crutches, kc6 08:59 Condition: good 08:59 Discharge instructions given to patient, Instructed on discharge instructions, follow up and referral plans. crutch walking, Demonstrated understanding of instructions, follow-up care, crutch walking, 08:59 Patient left the ED. kc6 Signatures: Dispatcher [employer] Pratibha Eisenberg RN Jesu Piña MD MD sp3 Joy Kothari RN RN kc6 Melinda Conner 3
--- NOTE | 2024-01-30 08:42 | EDPHYS ---
Physician Documentation [facility] Name: Dorina Rice Age: 58 yrs Sex: Female : 1965 Arrival Date: 01/30/2024 Time: 07:48 Bed 15 Private MD: ED Physician Jesu Mcgarry HPI: 01/29 08:38 This 58 yrs old Female presents to ER via Wheelchair with complaints of Ankle Injury. sp3 08:38 58-year-old female with history of hypertension presents with right ankle pain sp3 secondary to "rolling it over" yesterday while going down a single step. Patient is able to put weight but is painful. She denies any secondary injury, proximal joint pain, head injury, medical prodrome prior to the fall, or any other signs or symptoms on ROS at this time.. Historical: - Allergies: 08:00 PENICILLINS; iw 08:00 Bactrim; iw 08:00 Sulfa (Sulfonamide Antibiotics); iw - PMHx: 08:00 Hypertension; iw - PSHx: 08:00 breast (Hypertension); iw - Immunization history:: Adult Immunizations not up to date. - Infectious Disease History:: Denies. - Social history:: Smoking status: Patient denies any tobacco usage or history of. ROS: 08:39 Constitutional: Negative for fever, chills, and weight loss, Eyes: Negative for injury, sp3 pain, redness, and discharge, ENT: Negative for injury, pain, and discharge, Neck: Negative for injury, pain, and swelling, Cardiovascular: Negative for chest pain, palpitations, and edema, Respiratory: Negative for shortness of breath, cough, wheezing, and pleuritic chest pain, Abdomen/GI: Negative for abdominal pain, nausea, vomiting, diarrhea, and constipation, Back: Negative for injury and pain, Skin: Negative for injury, rash, and discoloration, Neuro: Negative for headache, weakness, numbness, tingling, and seizure, Psych: Negative for depression, anxiety, suicide ideation, homicidal ideation, and hallucinations, Allergy/Immunology: Negative for hives, rash, and allergies, Endocrine: Negative for neck swelling, polydipsia, polyuria, polyphagia, and marked weight changes, Hematologic/Lymphatic: Negative for swollen nodes, abnormal bleeding, and unusual bruising, 08:39 All other systems are negative, Exam: 08:39 Constitutional: This is a well developed, well nourished patient who is awake, alert, sp3 and in no acute distress. Head/Face: Normocephalic, atraumatic. Back: No spinal tenderness. No costovertebral tenderness. Full range of motion. Skin: Warm, dry with normal turgor. Normal color with no rashes, no lesions, and no evidence of cellulitis. Neuro: Awake and alert, GCS 15, oriented to person, place, time, and situation. Cranial nerves II-XII grossly intact. Motor strength 5/5 in all extremities. Sensory grossly intact. Cerebellar exam normal. Normal gait. 08:39 Musculoskeletal/extremity: Soft tissue pain laterally extending to the lateral malleolus. No pain medially. No pain at the base of the fifth metatarsal. Neurovascular exam is normal in the right ankle/foot.. Vital Signs: 07:59 BP 134 / 65; Pulse 77; Resp 16; Temp 97.6; Pulse Ox 99% on R/A; Weight 61.23 kg; Height iw 5 ft. 1 in. ; Pain 7/10; 07:59 Body Mass Index 25.51 (61.23 kg, 154.94 cm) iw 07:59 Pain Scale: Adult iw MDM: 08:12 Patient medically screened. sp3 08:39 Data reviewed: vital signs, nurses notes, radiologic studies. ED course: 58-year-old sp3 female with right ankle injury. X-ray demonstrates no fracture. Will diagnosis sprain and placed in Torsten wrap and crutches. Follow-up with orthopedics and/or PCP. OTC pain meds for pain control.. 01/29 08:13 Order name: Ankle Right 3 View XRAY; Complete Time: 08:53 sp3 01/29 08:40 Order name: Torsten Wrap; Complete Time: 08:41 sp3 01/29 08:40 Order name: Crutch Training; Complete Time: 08:41 sp3 Administered Medications: No medications were administered Disposition Summary: 01/30/24 08:41 Discharge Ordered Notes: Location: Home sp3 Condition: Stable sp3 Diagnosis - Ankle sprain right side sp3 Followup: sp3 - With: Private Physician - When: Upon discharge from the Emergency Department - Reason: Continuance of care Discharge Instructions: - Discharge Summary Sheet sp3 - Ankle Sprain sp3 - Crutch Use, Adult sp3 Forms: - Medication Reconciliation Form sp3 - Antibiotic Education sp3 - Prescription Opioid Use sp3 - Patient Portal Instructions sp3 - Leadership Thank You Letter sp3 Signatures: Dispatcher [employer] Pratibha Eisenberg, RN RN Jesu Alexander MD MD sp3
--- NOTE | 2024-01-30 08:50 | RAD REPORT ---
EXAM DESCRIPTION: RAD - Ankle Right 3 View - 01/30/2024 8:33 am CLINICAL HISTORY: Right ankle pain FINDINGS: No fracture or dislocation is seen. Moderate calcaneal spur
[2024-01-30 09:23] VITALS: BP 134/65; TEMP 97.6; O2SAT 99
--- OUTSIDE RECORDS SUMMARY | 2024-01-31 09:23 | XMS REPORT | Continuity of Care Document ---
Author Name Unknown Address [address] [facility] [address] [place] [address] [facility] thconnect Address [address] 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 Name Role Phone ALDAIR TRACEY Primary Care Physician Rolando Farooq Attending Clinician Unavailable Aldair Tracey Attending Clinician Unavail able Carlos Ochoa Attending Clinician Unavailable Yasmin Wu Attending Clinician Unavailable Holli Rapp Attending Clinician Unavailable GRUPO VARGAS Attending Clinician UnavailGrupo Uribe MD Attending Clinician GRUPO VARGAS Admitting Clinician Unavailronny barrios Problems Condition Name Condition Details Condition Category Status Onset Date Resolution Date Last Treatment Date Treating Clinician Comments Source [id number] Primary hyperparat hyroidism Problem Common [facility] [id number] SANTIAGO (generaliz ed anxiety disorder) Problem Common [facility] [id number] Panic attack Problem [facility] [id number] Restless leg syndrome Problem [facility] Hypertensi on HTN (hypertens ion) Problem [facility] [id number] Seasonal allergic rhinitis, unspecifie d trigger Problem [facility] Acute sinusitis Acute sinusitis Problem [facility] [id number] Dysuria Problem [facility] [id number] Breast implant status Problem [facility] Allergic rhinitis Allergic rhinitis Problem [facility] [id number] Serum calcium elevated Problem [facility] Chronic fatigue syndrome Chronic fatigue Problem [facility] [id number] Moderately severe major depression Problem [facility] [id number] Primary insomnia Problem [facility] Allergies, Adverse Reactions, Alerts Allergy Name Allergy Type Status Severity Reaction(s) Onset Date Inactive Date Treating Clinician Comments Source SULFA (SULFONA MIDE ANTIBIOT ICS) Drug Class Active Hives 11-07 00:00: 00 [facility] Sulfamet hoxazole -Trimeth oprim Propensi ty to adverse reaction s Active Unknown - See comments 11-07 00:00: 00 [facility] Penicill in Propensi ty to adverse reaction s Active Unknown - See comments 11-07 00:00: 00 [facility] Sulfa (Sulfona mide Antibiot ics) Propensi ty to adverse reaction s Active Hives 11-07 00:00: 00 [facility] SULFAMET HOXAZOLE -TRIMETH OPRIM DRUG Active Unknown-Cmnt 11-07 00:00: 00 [facility] PENICILL IN DRUG INGREDI Active Unknown-Cmnt 11-07 00:00: 00 [facility] 0 Drug allergy Active Unknown [facility] amoxicil scott amoxicil scott Active Unknown [facility] sulfamet hoxazole / trimetho prim sulfamet hoxazole / trimetho prim Active Unknown [facility] Social History Social Habit Start Date Stop Date Quantity Comments Source History of Tobacco Use [facility] Sexual orientation [facility] History of Social function 2023-11-08 00:00:00 2023-11-08 00:00:00 [facility] Sex assigned at 1965 00:00:00 1965 00:00:00 [facility] Smoking Status Start Date Stop Date Source Tobacco smoking consumption unknown [facility] Never Smoker [facility] Former Smoker 2023-05-17 00:00:00 2023-05-17 00:00:00 [facility] Medications Ordered Medication Name Filled Medication Name Start Date Stop Date Current Medication? Ordering Clinician Indication Dosage Frequency Signature (SIG) Comments Components Source clonazePAM 0.5 mg tablet 10-31 00:00: 00 Yes TAKE HALF A TABLET BY MOUTH ONCE A DAY. [facility] traZODone 100 mg tablet 10-31 00:00: 00 Yes TAKE ONE (1) TABLET(S) BY MOUTH AT BEDTIME NEEDED DAILY. [facility] buPROPion SR 150 mg SR tablet 10-21 00:00: 00 Yes 150mg Take 1 tablet by mouth in the morning. [facility] lisinopriL 40 mg tablet 09-27 00:00: 00 Yes 40mg Take 1 tablet by mouth in the morning. [facility] traZODone 50 mg tablet 09-27 00:00: 00 Yes TAKE ONE (1) TABLET(S) BY MOUTH DAILY AT BEDTIME NEEDED. [facility] ondansetron 8 mg disintegrat ing tablet 09-26 00:00: 00 Yes TAKE 1 TABLET BY MOUTH DAILY NEEDED FOR NAUSEA [facility] Wellbutrin SR 150 MG Wellbutrin SR 150 MG No 1{table t} QD Wellbutrin SR 150 MG Lisinopril 40 MG Lisinopril 40 MG No 1{table t} QD Lisinopril 40 MG Albuterol Sulfate 108 (90 Base) MCG/ACT Albuterol Sulfate 108 (90 Base) MCG/ACT No 2{puffs _as_nee ded} QID Albuterol Sulfate 108 (90 Base) MCG/ACT rOPINIRole HCl 1 MG rOPINIRole HCl 1 MG No QD rOPINIRole HCl 1 MG Vital Signs Vital Name Observation Time Observation Value Laurie ordoñez Systolic blood pressure 2023-11-08 19:37:00 112 mm[Hg] [facility] Diastolic blood pressure 2023-11-08 19:37:00 71 mm[Hg] [facility] Heart rate 2023-11-08 19:37:00 86 /min [facility] Body height 2023-11-08 19:37:00 154.9 cm [facility] Body weight 2023-11-08 19:37:00 66.86 kg [facility] BMI 2023-11-08 19:37:00 27.85 kg/m2 [facility] Oxygen saturation in Arterial blood by Pulse oximetry 2023-11-08 19:37:00 96 /min [facility] height 2023-11-01 13:00:00 63 [in_i] Commo n [facility] weight 2023-11-01 13:00:00 148.8 [lb_av] Co mmon [facility] temperature 2023-11-01 13:00:00 98.0 [degF] Com mon [facility] bmi 2023-11-01 13:00:00 26.36 kg/m2 Comm on [facility] oximetry 2023-11-01 13:00:00 99 % Commo n [facility] respiratory rate 2023-11-01 13:00:00 16 /min Common [facility] blood pressure systolic 2023-11-01 13:00:00 103 mm[Hg] Common [facility] blood pressure diastolic 2023-11-01 13:00:00 61 mm[Hg] Common [facility] height 2023-05-21 16:00:00 63 [in_i] Commo n [facility] weight 2023-05-21 16:00:00 149.0 [lb_av] Co mmon [facility] temperature 2023-05-21 16:00:00 97.4 [degF] Com mon [facility] bmi 2023-05-21 16:00:00 26.39 kg/m2 Comm on [facility] oximetry 2023-05-21 16:00:00 98 % Commo n [facility] respiratory rate 2023-05-21 16:00:00 16 /min Common [facility] blood pressure systolic 2023-05-21 16:00:00 130 mm[Hg[facility] pressure diastolic 2023-05-21 16:00:00 74 mm[Hg] Common [facility] height 2022-10-04 09:40:00 63 [in_i] Commo n [facility] weight 2022-10-04 09:40:00 179.4 [lb_av] Co mmon [facility] temperature 2022-10-04 09:40:00 97.8 [degF] Com [facility] bmi 2022-10-04 09:40:00 31.78 kg/m2 Comm on [facility] oximetry 2022-10-04 09:40:00 96 % Commo n [facility] respiratory rate 2022-10-04 09:40:00 17 /min Common [facility] blood pressure systolic 2022-10-04 09:40:00 110 mm[Hg] Common [facility] blood pressure diastolic 2022-10-04 09:40:00 73 mm[Hg] Common [facility] height 2022-01-17 08:10:00 63 [in_i] Commo n [facility] weight 2022-01-17 08:10:00 195 [lb_av] Comm on [facility] temperature 2022-01-17 08:10:00 97.2 [degF] Com mon [facility] bmi 2022-01-17 08:10:00 34.54 kg/m2 Comm on [facility] oximetry 2022-01-17 08:10:00 96 % Commo n [facility] respiratory rate 2022-01-17 08:10:00 19 /min [facility] blood pressure systolic 2022-01-17 08:10:00 137 mm[Hg] [facility] blood pressure diastolic 2022-01-17 08:10:00 75 mm[Hg] [facility] height 2021-04-21 08:00:00 62.00 [in_i] Com [facility] weight 2021-04-21 08:00:00 181 [lb_av] Comm on [facility] bmi 2021-04-21 08:00:00 33.1 kg/m2 Commo n [facility] Procedures Procedure Date / Time Performed Performing Clinicia n Source DEXA PERIPHERAL (FOREARM) 2023-12-05 19:37:07 [facility] DEXA AXIAL (HIP AND SPINE) 2023-12-05 19:37:07 [facility] Encounters Start Date/Time End Date/Time Encounter Type Admission Type Attending [facility] Care Facility Care Department Encounter ID Source 2023-12-17 11:33:[address] [facility] [id number] [facility] 2023-09-17 10:12:00 Outpatient Rolando Wallace [facility] [id number] [facility] 2023-09-06 16:26:00 Outpatient WallaceRolando otoole DALI [facility] [id number] [facility] 2023-05-21 16:48:00 Outpatient Adlair Tracey [facility] [id number] [facility] 2023-03-07 16:29:00 Outpatient Saragadam, Aldair [facility] [id number] [facility] 2022-09-20 15:14:00 Outpatient Carlos Ochoa [facility] [id number] [facility] 2022-09-13 10:26:00 Outpatient Yasmin Wu [facility] [id number] [facility] 2022-09-11 11:50:00 Outpatient Yasmin Wu [facility] [id number] [facility] 2022-07-17 08:43:00 Outpatient Yasmin Wu [facility] [id number] [facility] 2022-07-12 12:50:00 Outpatient Yasmin Wu [facility] [id number] [facility] 2022-02-28 09:38:00 Outpatient Rapp, Na [facility] [id number] [facility] 2021-12-25 10:17:00 Outpatient Rapp, Na [facility] [id number] [facility] 2021-11-24 15:38:00 Outpatient Rapp, Na [facility] [id number] [facility] 2021-07-12 14:08:46 Outpatient Rapp, Na [facility] [id number] [facility] 2021-07-12 14:08:08 Outpatient Rapp, Na [facility] [id number] [facility] 2021-07-12 13:07:41 Outpatient Rapp, Na [facility] [id number] [facility] 2021-07-12 13:01:14 Outpatient Rapp, Na [facility] [id number] [facility] 2021-07-12 12:28:48 Outpatient Rapp, Na [facility] [id number] [facility] 2021-07-12 12:28:19 Outpatient Rapp, Na [facility] [id number] [facility] 2021-07-12 12:27:34 Outpatient Rapp, Na [facility] [id number] [facility] 2021-07-12 12:14:12 Outpatient Rapp, Na [facility] [id number] [facility] 2021-07-12 11:56:07 Outpatient Rapp, Na [facility] [id number] [facility] 2021-07-12 11:55:45 Outpatient Rapp, Na [facility] [id number] [facility] 2021-07-12 11:48:55 Outpatient Rapp, Na [facility] [id number] [facility] 2021-07-12 11:28:42 Outpatient Rapp, Na [facility] [id number] [facility] 2021-07-12 11:22:15 Outpatient Rapp, Na [facility] [id number] [facility] 2023-12-12 00:00:00 2023-12-12 00:00:00 (TEL) [facility] [id number] [facility] 2023-12-09 13:21:50 2023-12-09 23:59:00 Outpatient GRUPO ALMODOVAR [facility] [id number] [facility] 2023-12-09 13:21:50 2023-12-09 23:59:00 Hospital Encounter [facility] [id number] [facility] 2023-12-05 14:13:05 2023-12-05 23:59:00 Outpatient R [facility] [id number] [facility] 2023-12-05 14:13:05 2023-12-05 23:59:00 Hospital Encounter [facility] [id number] [facility] 2023-11-08 15:00:00 2023-11-08 15:30:58 Office Visit [facility] [id number] [facility] 2023-11-01 00:00:00 2023-11-01 00:00:00 OFFICE VISIT ESTAB PT LEVEL 4 [facility] [id number] [facility] 2023-09-06 00:00:00 2023-09-06 00:00:00 (TEL) [facility] [id number] [facility] 2023-09-06 00:00:00 2023-09-06 00:00:00 (TEL) [facility] [id number] [facility] 2023-08-28 00:00:00 2023-08-28 00:00:00 (TEL) [facility] [id number] [facility] 2023-07-22 00:00:00 2023-07-22 00:00:00 (TEL) [facility] [id number] [facility] 2023-07-10 00:00:00 2023-07-10 00:00:00 (TEL) [facility] [id number] [facility] 2023-06-30 00:00:00 2023-06-30 00:00:00 (TEL) [facility] [id number] [facility] 2023-06-13 00:00:00 2023-06-13 00:00:00 (TEL) [facility] [id number] [facility] 2023-05-21 00:00:00 2023-05-21 00:00:00 OFFICE VISIT NEW PT LEVEL 3 [facility] [id number] [facility] 2023-03-07 00:00:00 2023-03-07 00:00:00 (TEL) [facility] [id number] [facility] 2023-01-16 00:00:00 2023-01-16 00:00:00 (TEL) [facility] [id number] [facility] 2022-11-08 00:00:00 2022-11-08 00:00:00 (TEL) [facility] [id number] [facility] 2022-10-04 00:00:00 2022-10-04 00:00:00 OFFICE VISIT ESTAB PT LEVEL 4 [facility] [id number] [facility] 2022-09-25 00:00:00 2022-09-25 00:00:00 (TEL) [facility] [id number] [facility] 2022-09-14 00:00:00 2022-09-14 00:00:00 (TEL) [facility] [id number] [facility] 2022-09-11 00:00:00 2022-09-11 00:00:00 (TEL) [facility] ST[facility] [id number] [facility] 2022-08-14 00:00:00 2022-08-14 00:00:00 (TEL) [facility] [id number] [facility] 2022-07-16 00:00:00 2022-07-16 00:00:00 (TEL) [facility] ST[facility] [id number] [facility] 2022-03-02 00:00:00 2022-03-02 00:00:00 OFFICE VISIT EST PT LEVEL 3 [facility] [id number] [facility] 2022-02-14 00:00:00 2022-02-14 00:00:00 (TEL) [facility] ST[facility] [id number] [facility] 2022-01-17 00:00:00 2022-01-17 00:00:00 OFFICE VISIT ESTAB PT LEVEL 2 [facility] ST[facility] [id number] [facility] 2022-01-15 00:00:00 2022-01-15 00:00:00 (TEL) [facility]C [facility] [id number] [facility] 2021-12-27 00:00:00 2021-12-27 00:00:00 OFFICE VISIT ESTAB PT LEVEL 4 [facility] [id number] [facility] 2021-12-01 00:00:00 2021-12-01 00:00:00 (TEL) [facility] [id number] [facility] 2021-04-21 00:00:00 2021-04-21 00:00:00 OFFICE VISIT ESTAB PT LEVEL 4 [facility] [id number] [facility] 2020-11-15 00:00:00 2020-11-15 00:00:00 Outpatient [facility] [id number] [facility] 2020-11-11 00:00:00 2020-11-11 00:00:00 Outpatient [facility] [id number] [facility] 2020-11-03 00:00:00 2020-11-03 00:00:00 Outpatient [facility] [id number] [facility] 2020-10-27 00:00:00 2020-10-27 00:00:00 Outpatient [facility] [id number] [facility] 2020-10-24 00:00:00 2020-10-24 00:00:00 Outpatient [facility] [id number] [facility] 2020-10-24 00:00:00 2020-10-24 00:00:00 Outpatient [facility] [id number] [facility] 2020-10-19 00:00:00 2020-10-19 00:00:00 Outpatient [facility] [id number] [facility] 2020-10-18 00:00:00 2020-10-18 00:00:00 Outpatient [facility] [id number] [facility] 2020-07-21 00:00:00 2020-07-21 00:00:00 Outpatient [facility] [id number] [facility] 2020-04-01 00:00:00 2020-04-01 00:00:00 Outpatient [facility] [id number] [facility] 2019-12-11 16:20:00 2019-12-11 16:20:00 Outpatient [facility] [id number] [facility] 2019-06-19 11:22:00 2019-06-19 11:22:00 Outpatient [facility] [id number] [facility] 2019-05-05 16:20:00 2019-05-05 16:20:00 Outpatient [facility] [id number] [facility] 2018-04-07 00:00:00 2018-04-07 00:00:00 Outpatient [facility] [id number] [facility] Results Test Description Test Time Test Comments Results Resul t Comments Source DEXA AXIAL (HIP AND SPINE) 2023-12-05 20:10:24 HISTORY: Primary hyperparathyroidi sm. TECHNIQUE: Bone density estimation is done using DEXA scan, over the righthip and lumbar spines. FINDINGS: Details of the results are enclosed for your review. The summaryis as follows. RIGHT HIP:BMD value is 0.908 gm/sq cm, with T-score of - 0.8. Estimated BMD in theneck is 0.833 g/sq cm with T score of -1.5. LUMBAR SPINES:Average BMD value from L1 through L4 is 1.198 gm/sq cm, with T-score 0.0. CONCLUSION: Mild osteopenia in the neck of right femur. ASSESSMENT: WHO-definitions: T-score normal: +/- 1 SD around the meanosteopenia: >1 to 2.4 SD below the meanosteoporosis: >2.5 SD below the meanFracture risk doubles for each 1.5 SD below the mean. [facility] DEXA PERIPHERAL (FOREARM) 2023-12-05 20:09:02 HISTORY: Primary hyperparathyroidi sm. TECHNIQUE: Bone density estimation is done using DEXA scan, over the distalleft forearm FINDINGS: Details of the results are enclosed for your review. The summaryis as follows. Left radius:BMD value of distal third of left radius is 0.697 gm/sq cm, with T-score of-2.0. Estimated BMD in the distal end of left radius is 0.337 g/sq cm withT score of - 2.8. Left ulna:BMD value of distal end of left ulna is 0.227 gm/sq cm, and in distal thirdof the left ulna is 0.734 g/sq cm. CONCLUSION: Osteoporosis. [facility]
== END 2024-01-30 08:59 | disposition home or self-care (01) ==
LOC: ER 07:48
DX: S93.401A Sprain of unspecified ligament of right ankle, initial encounter (principal); I10 Essential (primary) hypertension; Z88.0 Allergy status to penicillin; Z88.2 Allergy status to sulfonamides; Z88.1 Allergy status to other antibiotic agents
CPT/HCPCS: 99283